=== PATIENT | male | born 1985 | race Caucasian/White ===

== ENCOUNTER 2021-03-08 10:42 | Emergency (ER) | payer SELFPAY ==
[~2021-03-08] VITALS: Ht 165.1 cm; Wt 62.7 kg
[~2021-03-08 10:42] MED LIST: NAPR-1071 PO; SULF1TAB35 PO
[2021-03-08 10:45] VITALS: BP 173/113
[2021-03-08] MEDS ORDERED: ACHD5005 PO ×2 (11:07→12:22)
[2021-03-08] MEDS ORDERED: IBUP-1780 PO ×2 (11:07→12:22)
[2021-03-08] MEDS ORDERED: AMOX1TAB12 PO ×2 (11:07→12:22)
--- NOTE | 2021-03-08 11:08 | ED EENT ---
History of Present Illness General Chief Complaint: Fever-Adult/Adol Stated Complaint: FEVER;CHILLS;NECK SWELLING Nursing Triage Note: Patient reports right lower tooth pain for 3-4 days and states that the right side of his neck is swollen. He reports subjective fever and chills at home, states he took ibuprofen and tylenol at 0700 this morning and currently has little to no pain. He reports difficulty eating solid foods, but able to take in liquids and soft foods. Source: patient History of Present Illness Date Seen by Provider: Mar 08, 2021 Time Seen by Provider: 10:44 Initial Comments 35 yo male presenting with complaint of right sided jaw pain and swelling under jaw for 3-4 days. He has had subjective fever and chills but has not taken his temperature. He has pain with chewing and pain to teeth on right lower jaw. It hurts to open his mouth. He has not followed with a dentist for a long time. He is having trouble eating due to pain with chewing. He does not follow up with a primary care provider but has a history of high blood pressure and states his heart rate is always high. He does not take prescription medicines. He denies allergies to medicines. He has been taking Ibuprofen with Acetaminophen to help with pain. Timing/Duration: gradual Severity: severe Location: facial (right jaw), dental Prearrival Treatment: over the counter meds Associated Symptoms: No change in hearing; cough (from smoking); No drooling, No ear drainage; facial pain/swelling (right mandible/jaw), fever (subjective), malaise; No nasal congestion/drainage, No poor fluid intake; poor solids intake (due to pain with chewing); No sinus infection, No sore throat; tooth pain; No voice change Allergies and Home Medications Allergies Coded Allergies: No Known Drug Allergies (Unverified , 08/12/16) Home Medications Amoxicillin/Potassium Clav 1 Each Tablet, 1 EACH PO BID Prescribed by: VI INGRAM on 03/08/21 1107 Hydrocodone/Acetaminophen 1 Each Tablet, 1 TAB PO Q6H PRN for PAIN-SEVERE (8-10) Prescribed by: VI INGRAM on 03/08/21 1109 Ibuprofen 800 Mg Tablet, 800 MG PO Q8H PRN for PAIN Prescribed by: VI INGRAM on 03/08/21 1107 Naproxen 500 Mg Tablet, 500 MG PO BID PRN for PAIN Prescribed by: KAMRON CLARK on 08/12/161704 Sulfamethoxazole/Trimethoprim 1 Each Tablet, 1 EACH PO BID Prescribed by: KAMRON CLARK on 08/12/161704 Patient Home Medication List Home Medication List Reviewed: Yes Review of Systems Review of Systems Constitutional: chills, fever Eyes: No Symptoms Reported Ears: No Symptoms Reported Nose: no symptoms reported Mouth: see HPI Throat: no symptoms reported Respiratory: see HPI Cardiovascular: no symptoms reported Gastrointestinal: no symptoms reported Musculoskeletal: no symptoms reported Skin: No rash Neurological: No Symptoms Reported Past Fymkawq-Mkhqnk-Swrngm Hx Patient Social History Tobacco Use?: Yes Tobacco type used: Cigarettes Smoking Status: Current Everyday Smoker Seasonal Allergies Seasonal Allergies: No Past Medical History Surgeries: No Respiratory: No Cardiac: Yes Hypertension Neurological: No Reproductive Disorders: No Gastrointestinal: No Musculoskeletal: No Endocrine: No HEENT: No Cancer: No Psychosocial: No Integumentary: No Family Medical History No Pertinent Family Hx Physical Exam Vital Signs Vital Signs - First Documented 03/08/21 10:45 Temp 36.6 Pulse 109 Resp 16 B/P (MAP) 173/113 (133) Pulse Ox 98 O2 Delivery Room Air Height, Weight, BMI Height: 5'6" Weight: 130lbs. oz. [id number]; 23.00 BMI Method:Stated General Appearance: WD/WN, no apparent distress Eyes: bilateral eye PERRL, bilateral eye EOMI Mouth/Throat: dental tenderness, mandibular swelling (right submandibular lymph node swelling and tender to palpation); No tongue swollen, No tonsillar exudate; trismus Neck: full range of motion, supple, normal inspection, lymphadenopathy (R) (submandibular) Cardiovascular: normal peripheral pulses, tachycardia Respiratory: chest non-tender, lungs clear, normal breath sounds Neurologic/Psychiatric: alert, oriented x 3 Skin: normal color, warm/dry; No rash Progress/Results/Core Measures Results/Orders Vital Signs/I&O 03/08/21 10:45 Temp 36.6 Pulse 109 Resp 16 B/P (MAP) 173/113 (133) Pulse Ox 98 O2 Delivery Room Air Blood Pressure Mean: 133 Progress Progress Note : Progress Note Advised pt that he really needs to establish care about his blood pressure and medical management. Seeing a dentist for definitive care of his teeth and dental abscess is needed but for now will start on antibiotics and prescribe a few pain pills for more severe pain. Departure Impression Primary Impression: Dental caries Additional Impressions: Dental abscess Mandibular swelling Disposition: 01 HOME, SELF-CARE Condition: Stable Departure-Patient Inst. Decision time for Depature: 11:05 Referrals: NO,LOCAL PHYSICIAN (PCP) Primary Care Physician [facility] Patient Instructions: Dental Pain ED, Tooth Abscess ED Add. Discharge Instructions: Take antibiotic to help treat for dental infection and dental pain. Call [facility] at [phone] and let them know you needed to establish with a primary provider as well as follow up with a dentist for your teeth and jaw swelling. See Dentist next week about your teeth and jaw swelling to get more definitive care for dental abscess and cavities All discharge instructions reviewed with patient and/or family. Voiced understanding. Scripts Hydrocodone/Acetaminophen (Hydrocodone-Acetamin 5-325 mg) 1 Each Tablet 1 TAB PO Q6H PRN for PAIN-SEVERE (8-10) for 4 Days, #16 TAB 0 Refills Prov: VI INGRAM MD 03/08/21 Ibuprofen (Ibuprofen) 800 Mg Tablet 800 MG PO Q8H PRN for PAIN for 10 Days, #30 TAB 0 Refills Prov: VI INGRAM MD 03/08/21 Amoxicillin/Potassium Clav (Amox Tr-K Clv 875-125 mg Tab) 1 Each Tablet 1 EACH PO BID for dental abscess for 10 Days, #20 TAB 0 Refills Prov: VI INGRAM MD 03/08/21 VI INGRAM MD Mar 08, 2021 11:08
== END 2021-03-08 11:11 | disposition home or self-care (01) ==
LOC: EDUNIT# 10:42 → ER FS 10:44
DX: K02.9 Dental caries, unspecified (principal); K04.7 Periapical abscess without sinus; R00.0 Tachycardia, unspecified; I10 Essential (primary) hypertension; F17.210 Nicotine dependence, cigarettes, uncomplicated
CPT/HCPCS: 99282